=== PATIENT | male | born 1960 | race Caucasian/White ===

== ENCOUNTER 2019-07-28 16:17 | Emergency (ER) | payer OTHER ==
[2019-07-28] MEDS ORDERED: ASPIRIN 81 MG TABLET, CHEWABLE PO ONE (16:22)
--- NOTE | 2019-07-28 16:32 | ER Document Report ---
ED Medical Screen (RME) - General Chief Complaint: Chest Pain Stated Complaint: HIGH BLOOD PRESSURE/CHEST PAIN Time Seen by Provider: 07/28/19 16:22 Primary Care Provider: LAURA QUESADA [Primary Care Provider] - Follow up as needed Mode of Arrival: Ambulatory Information source: Patient Notes: 59-year-old male presents emergency department with history of diabetes high blood pressure COPD with complaints of chest pain that radiates from the center of his chest and his back for the past week. Reports pain is always there but increases with incident intensity at times. His provider who told him come here. Patient is laughing smiling no distress respiratory rate even unlabored I have greeted and performed a rapid initial assessment of this patient. A comprehensive ED assessment and evaluation of the patient, analysis of test results and completion of the medical decision making process will be conducted by additional ED providers. Dictation of this chart was performed using voice recognition software; therefore, there may be some unintended grammatical errors. - Related Data Allergies/Adverse Reactions: codeine [Codeine] Allergy (Verified 12/13/11 05:41) Past Medical History - Past Medical History Cardiac Medical History: Reports: Hx Hypercholesterolemia, Hx Hypertension Pulmonary Medical History: Reports: Hx Pneumonia, Hx Sleep Apnea Denies: Hx Tuberculosis Neurological Medical History: Denies: Hx Seizures Endocrine Medical History: Reports: Hx Diabetes Mellitus Type 2 GI Medical History: Reports: Hx Gastroesophageal Reflux Disease Musculoskeltal Medical History: Reports Hx Arthritis Traumatic Medical History: Reports: Hx Fractures Past Surgical History: Denies: Hx Pacemaker - Immunizations Hx Diphtheria, Pertussis, Tetanus Vaccination: Yes Doctor's Discharge - Discharge Referrals: LAURA QUESADA [Primary Care Provider] - Follow up as needed
[2019-07-28 17:13] LABS: ABSOLUTE BASOPHILS # (AUTO) 0.1 10^3/uL (0.0-0.2); ABSOLUTE EOSINOPHILS # (AUTO) 0.1 10^3/uL (0.0-0.6); ABSOLUTE MONOCYTES (AUTO) 0.9 10^3/uL (0.1-1.4); BASOPHILS % (AUTO) 0.6 % (0-2); EOSINOPHILS % (AUTO) 0.7 % (0-6); HEMATOCRIT 45.8 % (37.9-51.0); HEMOGLOBIN 15.8 g/dL (13.5-17.0); LYMPHOCYTES % (AUTO) 16.3 % (13-45); MEAN CORPUSCULAR HEMOGLOBIN 28.5 pg (27.0-33.4); MEAN CORPUSCULAR HGB CONC 34.4 g/dL (32.0-36.0); MEAN CORPUSCULAR VOLUME 83 fl (80-97); MONOCYTES % (AUTO) 7.3 % (3-13); PLATELET COUNT 358 10^3/uL (150-450); RED BLOOD COUNT 5.54 10^6/uL (4.35-5.55); RED CELL DISTRIBUTION WIDTH 14.4 % (11.5-14.0); SEGMENTED NEUTROPHILS % (AUTO) 75.1 % (42-78); TOTAL CELLS COUNTED % (AUTO) 100 %
[2019-07-28 17:33] LABS: ALBUMIN 4.2 g/dL (3.5-5.0); ALKALINE PHOSPHATASE 87 U/L (38-126); ANION GAP 11 (5-19); ASPARTATE AMINO TRANSFERASE 17 U/L (17-59); BILIRUBIN,DIRECT 0.1 mg/dL (0.0-0.4); BILIRUBIN,TOTAL 0.4 mg/dL (0.2-1.3); BLOOD UREA NITROGEN 13 mg/dL (7-20); CALCIUM 9.2 mg/dL (8.4-10.2); CARBON DIOXIDE 27 mmol/L (22-30); CHLORIDE 99 mmol/L (98-107); CREATINE KINASE 80 U/L (55-170); GLUCOSE 293 mg/dL (75-110); POTASSIUM 3.6 mmol/L (3.6-5.0); TOTAL PROTEIN 7.1 g/dL (6.3-8.2)
[2019-07-28 17:44] LABS: CREATINE KINASE MB 1.94 ng/mL (<4.55); TROPONIN I 0.02 ng/mL
[2019-07-28] MEDS ORDERED: MORPHINE SULFATE 10 MG/ML INJ IV ONE (17:58)
[2019-07-28] MEDS ORDERED: LABETALOL HCL INJ 20 MG/4 ML DISP.SYRIN IV ONE (18:00)
--- NOTE | 2019-07-28 18:03 | ER Document Report ---
ED General - General Mode of Arrival: Ambulatory TRAVEL OUTSIDE OF THE [place] IN LAST 30 DAYS: No - Related Data Home Medications: ambien 10mg, flexeril 10mg, protonix 40mg, Metformin 1000mg, Oxycodone 15mg, trazadone 150mg, and blood pressure medication that pt cannot rememebr name of <VIVI RUIZ - Last Filed: 07/28/19 19:25> <ROBERTH YOUNG - Last Filed: 07/28/19 21:32> - General Chief Complaint: Chest Pain Stated Complaint: HIGH BLOOD PRESSURE/CHEST PAIN Time Seen by Provider: 07/28/19 16:22 Primary Care Provider: PRETTY VALDEZ MD [ACTIVE STAFF] - Follow up as needed - [facility] Notes: Patient is a 59-year-old male with a history of type 2 diabetes, hypertension, COPD, chronic back pain and on narcotics chronically who presents complaining of midsternal lower chest pain that radiates to his back there is been intermittent for the past week. Patient states he has had a dry cough throughout this time as well. Patient states that his chest pain began this morning and has been constant all day. The pain will also come in more intense sharp waves and take his breath away making him feel SOB during those exacerbations. Patient has been taking his home medicines as directed. He is able to eat and drink without difficulty or changes in symptoms. He is urinating normally and having normal bowel movements. + smoker. Denies any prolonged immobilization, distance tr lobo, recent surgery/trauma, personal cancer history, hormone use, or previous DVT/PE. No h/o CAD, CVA. Denies any headache, fever, neck pain, URI, sore throat, palpitations, syncope, wheeze, dyspnea, abdominal pain, nausea/vomiting/diarrhea, urinary retention, dysuria, hematuria, or rash. (JOSEPH,VIVI) - Related Data Allergies/Adverse Reactions: codeine [Codeine] Allergy (Verified 12/13/11 05:41) Past Medical History - General Information source: Patient - Social History Smoking Status: Current Every Day Smoker Frequency of alcohol use: None Drug Abuse: None Family History: Reviewed & Not Pertinent Patient has suicidal ideation: No Patient has homicidal ideation: No - Past Medical History Cardiac Medical History: Reports: Hx Hypercholesterolemia, Hx Hypertension Pulmonary Medical History: Reports: Hx Pneumonia, Hx Sleep Apnea Denies: Hx Tuberculosis Neurological Medical History: Denies: Hx Seizures Endocrine Medical History: Reports: Hx Diabetes Mellitus Type 2 GI Medical History: Reports: Hx Gastroesophageal Reflux Disease Musculoskeletal Medical History: Reports Hx Arthritis Traumatic Medical History: Reports: Hx Fractures Past Surgical History: Denies: Hx Pacemaker - Immunizations Hx Diphtheria, Pertussis, Tetanus Vaccination: Yes Hx Pneumococcal Vaccination: 09/30/00 <VIVI RUIZ - Last Filed: 07/28/19 19:25> Review of Systems - Review of Systems -: Yes All other systems reviewed and negative <VIVI RUIZ - Last Filed: 07/28/19 19:25> Physical Exam <VIVI RUIZ - Last Filed: 07/28/19 19:25> - Vital signs Vitals: Temp Pulse Resp BP Pulse Ox 97.9 F 92 18 190/107 H 97 07/28/19 16:28 07/28/19 16:28 07/28/19 16:28 07/28/19 16:28 07/28/19 16:28 - Notes Notes: PHYSICAL EXAMINATION: GENERAL: Well-appearing, well-nourished and in no acute distress. HEAD: Atraumatic, normocephalic. EYES: Pupils equal round and reactive to light, extraocular movements intact, sclera anicteric, conjunctiva are normal. ENT: Nares patent and without discharge. oropharynx clear without exudates. No tonsilar hypertrophy or erythema. Moist mucous membranes. NECK: Normal range of motion, supple without lymphadenopathy LUNGS: Breath sounds clear to auscultation bilaterally and equal. No wheezes rales or rhonchi. HEART: Regular rate and rhythm without murmurs, rubs, gallops. ABDOMEN: Soft, nontender, nondistended abdomen. No guarding, no rebound. Normal bowel sounds present. No CVA tenderness bilaterally. Musculoskeletal: FROM to passive/active. Strength 5+/5. Lola neg. No asymmetry to LE's. Extremities: No cyanosis, clubbing, or edema b/l. Peripheral pulses 2+. Capillary refill less than 3 seconds. NEUROLOGICAL: Normal speech, normal gait. PSYCH: Normal mood, normal affect. SKIN: Warm, Dry, normal turgor, no rashes or lesions noted. (VIVI RUIZ) Course - Laboratory Result Diagrams: 07/28/19 16:57 07/28/19 16:57 <VIVI RUIZ - Last Filed: 07/28/19 19:25> - Laboratory Result Diagrams: 07/28/19 16:57 07/28/19 16:57 <ROBERTH YOUNG - Last Filed: 07/28/19 21:32> - Re-evaluation Re-evalutation: 07/28/19 Patient is an afebrile, well-hydrated 59-year-old male who presents to the ED with atypical chest pain and cough, possible viral component (nonproductive in setting of COPD). Vitals are acceptable without any significant tachycardia, tachypnea, or hypoxia. PE is otherwise unremarkable. Patient is nontoxic- appearing and is tolerating p.o. without any difficulties. CBC, CMP, EKG/cardiac enzymes x1 (2nd trop pending), d-dimer, and chest x-ray are all unremarkable for any acute pathology. Patient has a heart score of 3, Wells score of 0. Patient does not have any current dyspnea or shortness of breath. Pt has declined any trial of nitro sl. Pending 2nd trop and dispo: Pending 2nd tropin, but patient's presentation and symptomatology otherwise creates lower suspicion for ACS, PE, pneumothorax, pericarditis, dissection, respiratory compromise, severe dehydration, sepsis, meningitis, or other systemic emergent condition at this time. Patient is aware that his condition can change from initial presentation and he needs to monitor symptoms closely and seek medical attention for any acute changes. Recommend conservative measu res for symptoms. Recheck with your PCM in 2-3 days. Consider consult with Cardiology. Return to the ED with any worsening/concerning symptoms otherwise as reviewed in discharge. Patient is in agreement. Transfer of care to Roberth Young PA-C for 2nd trop and final dispo. (VIVI RUIZ) 07/28/19 21:31 Second troponin without significant change from prior. I suspect troponin is indeterminate because of patient's hypertension. I discussed this with him, he states he has close follow-up with his primary provider. He is hyperglycemic, discussed this, he is on metformin and Lantus, he states that he ate a waffle before coming in. He states that he usually has good control this and he is not worried about it. States he was just here to make sure everything was okay today, he states he will follow-up and return if he worsens in any way, he is requesting immediate discharge. Patient asymptomatic and well-appearing at time of discharge. (ROBERTH YOUNG) - Vital Signs Vital signs: Temp Pulse Resp BP Pulse Ox 98 F 92 20 185/99 H 96 07/28/19 20:01 07/28/19 16:28 07/28/19 21:01 07/28/19 21:00 07/28/19 21:01 - Laboratory Laboratory results interpreted by me: 07/28/19 07/28/19 16:57 16:57 WBC 12.0 H RDW 14.4 H Absolute Neuts (auto) 9.0 H Glucose 293 H Discharge <VIVI RUIZ - Last Filed: 07/28/19 19:25> <ROBERTH YOUNG - Last Filed: 07/28/19 21:32> - Discharge Clinical Impression: Atypical chest pain, Cough Condition: Stable Disposition: HOME, SELF-CARE Instructions: Chest Pain of Unclear Cause ([facility]) Additional Instructions: Maintain adequate fluid and food intake Take home medications as directed Healthy diet Monitor blood pressure daily and keep a log Monitor symptoms for any acute changes Cold medications as needed Recheck with your PCM in 2-3 days Schedule follow-up with cardiology Return to the ED with any worsening symptoms and/or development of fever, headache, chest pain, palpitations, syncope, shortness of breath, trouble breathing, abdominal pain, n/v/d, blood in stool/urine, loss of control of bowel/bladder, urinary retention, muscle weakness/paralysis, numbness/tingling, or other worsening symptoms that are concerning to you. Prescriptions: Benzonatate [Tessalon Perle 100 mg Capsule] 100 mg PO Q8HP PRN #15 cap PRN Reason: Forms: Elevated Blood Pressure, Smoking Cessation Education Referrals: PRETTY VALDEZ MD [ACTIVE STAFF] - Follow up as needed
--- NOTE | 2019-07-28 18:09 | RADIOLOGY REPORT (SQ) ---
EXAM DESCRIPTION: CHEST 2 VIEWS COMPLETED DATE/TIME: 07/28/2019 5:34 pm REASON FOR STUDY: CP COMPARISON: None. EXAM PARAMETERS: NUMBER OF VIEWS: two views TECHNIQUE: Digital Frontal and Lateral radiographic views of the chest acquired. RADIATION DOSE: NA LIMITATIONS: none FINDINGS: LUNGS AND PLEURA: No consolidation, masses or pneumothorax. No pleural effusion. MEDIASTINUM AND HILAR STRUCTURES: No masses or contour abnormalities. HEART AND VASCULAR STRUCTURES: Heart normal size. No evidence for failure. BONES: No acute findings. HARDWARE: None in the chest. OTHER: No other significant finding. IMPRESSION: NO ACUTE RADIOGRAPHIC FINDING IN THE CHEST. TECHNICAL DOCUMENTATION: JOB ID: [id number] [id number] 2010 [employer]- All Rights Reserved Reading location - IP/workstation name: [email or web address]
--- NOTE | 2019-07-28 18:51 | EKG REPORT ---
SEVERITY:- ABNORMAL ECG - SINUS RHYTHM VENTRICULAR PREMATURE COMPLEX FIRST DEGREE AV BLOCK LEFT ATRIAL ABNORMALITY ABNRM R PROG, CONSIDER ASMI OR LEAD PLACEMENT : Confirmed by: Robert Anne MD 28-Jul-2019 18:50:46
[2019-07-28] MEDS ORDERED: KETOROLAC TROMETHAMINE INJ/PF 30 MG/1 ML SDV IV ONE (19:10)
[2019-07-28 21:29] VITALS: BP 185/99
== END 2019-07-28 21:41 | disposition home or self-care (01) ==
LOC: ER 16:17
DX: R07.89 Other chest pain (principal); R05 Cough; I10 Essential (primary) hypertension; E11.9 Type 2 diabetes mellitus without complications; J44.9 Chronic obstructive pulmonary disease, unspecified; G89.29 Other chronic pain; M54.9 Dorsalgia, unspecified; F17.200 Nicotine dependence, unspecified, uncomplicated; Z88.6 Allergy status to analgesic agent
CPT/HCPCS: 93005; 99285; 96374; 96375; 36415; 82553; 82550; 85025; 80053; 84484; 85379; 71046; 93010; J3490; J1885; J2270